=== PATIENT | male | born 1960 | race Caucasian/White ===

== ENCOUNTER → 2016-07-09 | Outpatient (CLI) | payer BC ==
--- NOTE | 2016-07-09 18:08 | RADIOLOGY REPORT (SQ) ---
EXAM DESCRIPTION: U/S RETROPERITON (RENAL/AORTA) COMPLETED DATE/TIME: 07/09/2016 5:57 pm REASON FOR STUDY: Cyst of kidney, acquired N28.1 CYST OF KIDNEY, ACQUIRED COMPARISON: 02/15/2016 TECHNIQUE: Dynamic and static grayscale images acquired of the kidneys and bladder and recorded on P ACS. Additional selected color Doppler and spectral images recorded. LIMITATIONS: None. FINDINGS: RIGHT KIDNEY: Right kidney measures 10.8 cm in length. Right lower pole cyst is again not ed. It measures 2.1 cm in greatest dimensions. There is no hydronephrosis. It is grossly unchanged from prior study. There are small septations. LEFT KIDNEY: Normal size. Normal echogenicity. No solid or suspicious masses. No hydronephrosis. No calcifications. BLADDER: No masses. OTHER FINDINGS: No other significant finding. IMPRESSION: Stable complex cyst in the inferior pole the right kidney. TECHNICAL DOCUMENTATION: JOB ID: [id number] [employer]- All Rights Reserved
== END ==
LOC: RAD 17:13
PROVIDERS: ATTEND Urology
DX: N28.1 Cyst of kidney, acquired (principal)
CPT/HCPCS: 76770

== ENCOUNTER → 2016-10-04 | Outpatient (CLI) | payer BC ==
--- NOTE | 2016-10-05 08:16 | RADIOLOGY REPORT (SQ) ---
EXAM DESCRIPTION: HAND RIGHT 3 VIEWS COMPLETED DATE/TIME: 10/04/2016 2:31 pm REASON FOR STUDY: LOCALIZED SWELLING MASS OR LUMP IN R HAND R22.31 LOCALIZED SWELLING, MASS AND LUM P, RIGHT UPPER LIMB COMPARISON: None. EXAM PARAMETERS: NUMBER OF VIEWS: Three views. TECHNIQUE: AP, lateral and oblique radiographic images acquired of the right hand. LIMITATIONS: None. FINDINGS: MINERALIZATION: Normal. BONES: No acute fracture or dislocation. No worrisome bone lesions. JOINTS: No effusions. SOFT TISSUES: No soft tissue swelling. No foreign body. OTHER: No other significant finding. IMPRESSION: NEGATIVE STUDY OF THE RIGHT HAND. NO RADIOGRAPHIC EVIDENCE OF ACUTE INJURY. TECHNICAL DOCUMENTATION: JOB ID: [id number] [employer]- All Rights Reserved
== END ==
LOC: RAD 14:14
PROVIDERS: ATTEND Surgery
DX: R22.31 Localized swelling, mass and lump, right upper limb (principal)

== ENCOUNTER → 2018-02-06 | Outpatient (CLI) | payer BC ==
--- NOTE | 2018-02-06 14:26 | RADIOLOGY REPORT (SQ) ---
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 TECHNIQUE: CT scan of the abdomen and pelvis performed with and without intravenous contrast, and wi thout oral contrast. Contrasted imaging performed helical scanning technique and dynamic intravenous contrast injection. Images reviewed with lung, soft tissue, and bone windows. Reconstructed coronal a nd sagittal MPR images reviewed. Delayed images for evaluation of the urinary system also acquired. A ll images stored on PACS. All CT scanners at this facility use dose modulation, iterative reconstruction, and/or weight based d osing when appropriate to reduce radiation dose to as low as reasonably achievable (ALARA). [facility]: Dose Right [facility]: CareDose [facility]: Dose Right [facility]: Teradose 4D [facility]: Image Searcher CONTRAST TYPE AND DOSE: contrast/concentration: Isovue 350.00 mg/ml; Total Contrast Delivered: 81.0 ml; Total Saline Delivered: 68.0 ml RENAL FUNCTION: Creatinine 0.7 RADIATION DOSE: CT Rad equipment meets quality standard of care and radiation dose reduction techniq ues were employed. CTDIvol: 8.9 - 9.0 mGy. DLP: 1829 mGy-cm. . LIMITATIONS: None. FINDINGS: NON-CONTRASTED IMAGING: No significant renal or bladder calcifications. No other significa nt organ calcifications. POST-CONTRASTED IMAGING: LOWER CHEST: No significant findings. No nodules or infiltrates. LIVER: Normal size. No masses. No dilated ducts. SPLEEN: Normal size. No focal lesions. PANCREAS: No masses. No significant calcifications. No adjacent inflammation or peripancreatic fluid collections. Pancreatic duct not dilated. GALLBLADDER: No identified stones by CT criteria. No inflammatory changes to suggest cholecystitis. ADRENAL GLANDS: No significant masses or asymmetry. RIGHT KIDNEY AND URETER: No solid masses. No significant calcifications. No hydronephrosis or hyd roureter. LEFT KIDNEY AND URETER: No solid masses. No significant calcifications. No hydronephrosis or hydr oureter. AORTA AND VESSELS: No aneurysm. No dissection. Renal arteries, SMA, celiac without stenosis. RETROPERITONEUM: No retroperitoneal adenopathy, hemorrhage or masses. BOWEL AND PERITONEAL CAVITY: No masses or inflammatory changes. No free fluid or peritoneal masses. APPENDIX: Normal. PELVIS: There is thickening of the bladder wall. No distinct mass is appreciated. ABDOMINAL WALL: No masses. No hernias. BONES: Small marginal osteophytes are seen on the femoral heads. OTHER: No other significant finding. IMPRESSION: Nonspecific thickening of bladder wall. No distinct bladder mass is present. Mild dege nerative changes in the hips. TECHNICAL DOCUMENTATION: JOB ID: [id number] Quality ID # [id number]: Final reports with documentation of one or more dose reduction techniques (e.g., Au tomated exposure control, adjustment of the mA and/or kV according to patient size, use of iterative reconstruction technique) 2010 [employer]- All Rights Reserved Reading location - IP/workstation name: [email or web address]
== END ==
LOC: RAD 14:00
PROVIDERS: ATTEND Urology
DX: C67.8 Malignant neoplasm of overlapping sites of bladder (principal); N28.1 Cyst of kidney, acquired
CPT/HCPCS: 74178; 82565

== ENCOUNTER → 2019-08-27 | Outpatient (CLI) | payer BC ==
--- NOTE | 2019-08-27 12:57 | RADIOLOGY REPORT (SQ) ---
EXAM DESCRIPTION: U/S RETROPERITON (RENAL/AORTA) IMAGES COMPLETED DATE/TIME: 08/27/2019 11:40 am REASON FOR STUDY: N28.1 CYST OF KIDNEY, ACQUIRED N28.1 CYST OF KIDNEY, ACQUIRED COMPARISON: 07/09/2016 TECHNIQUE: Dynamic and static grayscale images acquired of the kidneys and bladder and recorded on P ACS. Additional selected color Doppler and spectral images recorded. LIMITATIONS: None. FINDINGS: RIGHT KIDNEY: Normal size 11.7 cm. Normal echogenicity. No solid or suspicious masses. T here is a 2.6 cm septated cyst. No hydronephrosis. No calcifications. LEFT KIDNEY: Normal size. Normal echogenicity. No solid or suspicious masses. No hydronephrosis. No calcifications. BLADDER: The bladder wall is thickened to a 10 mm is slightly irregular with smooth borders. Bilater al ureteral jets are seen. OTHER FINDINGS: No other significant finding. IMPRESSION: 1. Normal kidneys. 2. There is thickening of the bladder wall as described. TECHNICAL DOCUMENTATION: JOB ID: [id number] 2010 [employer]- All Rights Reserved Reading location - IP/workstation name: [email or web address]
== END ==
LOC: RAD 11:13
PROVIDERS: ATTEND Urology
DX: N28.1 Cyst of kidney, acquired (principal)
CPT/HCPCS: 76770

== ENCOUNTER → 2019-09-03 | Outpatient (CLI) | payer BC ==
--- NOTE | 2019-09-03 14:38 | RADIOLOGY REPORT (SQ) ---
EXAM DESCRIPTION: CT ABD/PELVIS COMBO IMAGES COMPLETED DATE/TIME: 09/03/2019 2:15 pm REASON FOR STUDY: BLADDER CA (C67.8), MICROSCOPIC HEMATURA (R31.29) C67.8 MALIGNANT NEOPLASM OF OVE RLAPPING SITES OF BLADDER R31.29 OTHER MICROSCOPIC HEMATURIA COMPARISON: 02/06/2018 TECHNIQUE: CT scan of the abdomen and pelvis performed with and without intravenous contrast, and wi thout oral contrast. Contrasted imaging performed helical scanning technique and dynamic intravenous contrast injection. Images reviewed with lung, soft tissue, and bone windows. Reconstructed coronal a nd sagittal MPR images reviewed. Delayed images for evaluation of the urinary system also acquired. A ll images stored on PACS. All CT scanners at this facility use dose modulation, iterative reconstruction, and/or weight based d osing when appropriate to reduce radiation dose to as low as reasonably achievable (ALARA). [facility]: Dose Right [facility]: CareDose [facility]: Dose Right [facility]: Teradose 4D [facility]: Mytopia CONTRAST TYPE AND DOSE: contrast/concentration: Isovue 350.00 mmol/ml; Total Contrast Delivered: 73. 0 ml; Total Saline Delivered: 61.0 ml RENAL FUNCTION: Creatinine 0.5 RADIATION DOSE: CT Rad equipment meets quality standard of care and radiation dose reduction techniq ues were employed. CTDIvol: 9.0 - 9.0 mGy. DLP: 1309 mGy-cm. . LIMITATIONS: None. FINDINGS: NON-CONTRASTED IMAGING: No significant renal or bladder calcifications. No other significa nt organ calcifications. POST-CONTRASTED IMAGING: LOWER CHEST: No significant findings. No nodules or infiltrates. LIVER: Normal size. No masses. No dilated ducts. SPLEEN: Normal size. No focal lesions. PANCREAS: No masses. No significant calcifications. No adjacent inflammation or peripancreatic fluid collections. Pancreatic duct not dilated. GALLBLADDER: No identified stones by CT criteria. No inflammatory changes to suggest cholecystitis. ADRENAL GLANDS: No significant masses or asymmetry. RIGHT KIDNEY AND URETER: No solid masses. No significant calcifications. No hydronephrosis or hyd roureter. LEFT KIDNEY AND URETER: No solid masses. No significant calcifications. No hydronephrosis or hydr oureter. AORTA AND VESSELS: No aneurysm. No dissection. Renal arteries, SMA, celiac without stenosis. RETROPERITONEUM: No retroperitoneal adenopathy, hemorrhage or masses. BOWEL AND PERITONEAL CAVITY: No masses or inflammatory changes. No free fluid or peritoneal masses. APPENDIX: Normal. PELVIS: Anterior bladder wall is slightly thickened. No focal masses identified. ABDOMINAL WALL: No masses. No hernias. BONES: No significant or acute findings. OTHER: No other significant finding. IMPRESSION: Slight thickening of the anterior bladder wall. No other significant findings. TECHNICAL DOCUMENTATION: JOB ID: [id number] Quality ID # [id number]: Final reports with documentation of one or more dose reduction techniques (e.g., Au tomated exposure control, adjustment of the mA and/or kV according to patient size, use of iterative reconstruction technique) 2010 [employer]- All Rights Reserved Reading location - IP/workstation name: [email or web address]
== END ==
LOC: RAD 13:25
PROVIDERS: ATTEND Urology
DX: C67.8 Malignant neoplasm of overlapping sites of bladder (principal); R31.29 Other microscopic hematuria
CPT/HCPCS: 74178

== ENCOUNTER → 2020-02-16 | Outpatient (CLI) | payer BC ==
[~2020-02-16] MED LIST: COVID-19 VACCINE (PFIZER)/PF 30 MCG/0.3 ML VIAL IM ONE; EPINEPHRINE INJ/PF 1 MG/1 ML AMPULE IM PRN
== END ==
LOC: EMPHEALTH 08:07
PROVIDERS: ATTEND Internal Medicine
DX: Z23 Encounter for immunization (principal)
CPT/HCPCS: 91300

== ENCOUNTER → 2020-03-08 | Outpatient (CLI) | payer BC | LOC: EMPHEALTH 08:11 | PROVIDERS: ATTEND Internal Medicine | DX: Z23 Encounter for immunization (principal) | CPT/HCPCS: 91300 ==